=== PATIENT | female | born 1975 | race Caucasian/White ===

== ENCOUNTER → 2020-03-15 | Outpatient (CLI) | payer OTHER ==
[~2020-03-15] MED LIST: ALLEGRA ALLERG180 MG PO; BIOTIN1 M1 PO; CLARITIN10 MG PO; COLACE 100MG C100 MG PO; IBUPROFEN600 MG PO; LITHOBID C.R.300 MG PO; NORCO 5-325 TA1 EACH PO; PRILOSEC OTC20 MG PO; SEROQUEL50 MG PO; SINGULAIR10 MG PO; XANAX1 MG PO; ZYRTEC10 MG PO
== END ==
LOC: KOH-I 14:29
DX: M79.671 Pain in right foot (principal)
CPT/HCPCS: 73630

== ENCOUNTER → 2021-06-10 | Outpatient (CLI) | payer OTHER | LOC: KOH-I 14:47 | DX: M79.671 Pain in right foot (principal) | CPT/HCPCS: 73630 ==

== ENCOUNTER → 2021-10-30 | Outpatient (CLI) | payer OTHER ==
[~2021-10-30] MED LIST changes: -BIOTIN1 M1 PO; +BIOTIN5 MG PO; +FLONASE ALLER15.8 ML; -IBUPROFEN600 MG PO; +IBUPROFEN800 MG PO; +VITAMIN D21250 MCG PO
[2021-10-30 13:45] LABS: HEMOGLOBIN 13.2 gm/dl (12.3-15.3); RED BLOOD COUNT 4.73 M/UL (4.00-5.10); WHITE BLOOD COUNT 4.2 K/UL (4.5-11.0)
[2021-10-30 14:03] LABS: BUN/CREATININE RATIO 10 (0-10)
== END ==
LOC: OPSV2 12:25
PROVIDERS: Podiatrist Foot & Ankle Surgery
DX: Z01.818 Encounter for other preprocedural examination (principal); M77.51 Other enthesopathy of right foot and ankle
CPT/HCPCS: 80048; 85027; 93005

== ENCOUNTER → 2021-11-08 | Day surgery (SDC) | payer OTHER ==
[~2021-11-08] VITALS: Ht 154.9 cm; Wt 60.3 kg
[~2021-11-08] MED LIST changes: +ASHWAGANDHA RO300 MG PO; +COLLAGEN 15001 EACH PO; +SUPER MULTIVIT1 EACH PO; +TOPAMAX50 MG PO
== END | disposition home or self-care (01) ==
LOC: OR 06:14
DX: M21.071 Valgus deformity, not elsewhere classified, right ankle (principal); M62.471 Contracture of muscle, right ankle and foot; K21.9 Gastro-esophageal reflux disease without esophagitis; Z79.899 Other long term (current) drug therapy; Z88.0 Allergy status to penicillin; Z88.1 Allergy status to other antibiotic agents; Z88.5 Allergy status to narcotic agent
CPT/HCPCS: 73620; 73630; 76000; C1713; J1100; J1885; J2001; J2250; J2405; J2704; J2795; J3010; J3370